=== PATIENT | male | born 1960 | race Caucasian/White ===

== ENCOUNTER 2022-06-18 15:45 | Emergency (ER) | payer BC, SELFPAY ==
--- NOTE | 2022-06-18 15:47 | ED.SKABFB ---
HPI - Skin/Abscess/Foreign Bdy General Chief complaint: Urogenital-Male Stated complaint: Rash Time Seen by Provider: 06/18/22 15:47 Source: patient and RN notes reviewed History of Present Illness HPI narrative: patient is a 61-year-old male who presents to urgent care with complaints of penile irritation. Patient denies any discharge or drainage from the penis. States that he has had new partners recently. Denies any urinary symptoms. States that he has also not been on his medications because he does not like his primary care doctor and has not been back for months. No other acute complaints. No acute distress noted. Patient aware of the plan of care. Some parts of this dictation were generated by voice recognition software and may contain typographical and/or grammatical inaccuracies. Related Data Allergies Allergy/AdvReac Type Severity Reaction Status Date / Time No Known Allergies Allergy Verified 06/18/22 16:05 Review of Systems Review of Systems: CONSTITUTIONAL: Denies fever, chills, or sweats. EYES: Denies visual changes, redness, or discharge. ENT: Denies rhinorrhea, congestion, sore throat, or otalgia. CARDIOVASCULAR: Denies chest pain, palpitations, or edema. RESPIRATORY: Denies cough or dyspnea. GASTROINTESTINAL: Denies abdominal pain, nausea, vomiting, or diarrhea. GENITOURINARY: Denies dysuria or hematuria. SKIN: Reports of penile skin irritation MUSCULOSKELETAL: Denies back pain, joint pain, or myalgia. NEUROLOGIC: Denies headache, numbness, or weakness. All other systems reviewed are negative, except as documented in HPI. PMFSH Comments At the time of my signature, I reviewed and agree with the nursing past medical, surgical, social, and family history. There is no relevant family history pertinent to the patient complaint. Exam Narrative: GENERAL: This is a well-nourished, well-developed patient, in no apparent distress. HEAD: normocephalic, atraumatic. EYES: PERRL. Sclera clear/white. Vision is grossly intact. EARS: External ears normal NOSE: External nose normal with no obvious nasal discharge, nares without redness, no rhinorrhea. THROAT: Mucous membranes moist NECK: Neck supple SKIN: warm, intact with no suspicious lesions or rash, good texture and turgor. NEURO: awake, alert, and oriented to person, place and time. There were no obvious focal neurologic abnormalities. : excoriated erythemic irritation to the shaft of the penis without penile discharge. EXTREMITIES: No clubbing, cyanosis, or edema. Course Course Level of Care: Express Care Visit Vital Signs Vital signs: Vital Signs Temperature 97.3 F L 06/18/22 15:56 Pulse Rate 84 06/18/22 15:56 Respiratory Rate 18 06/18/22 15:56 Blood Pressure 151/90 H 06/18/22 15:56 Pulse Oximetry 96 06/18/22 15:56 Oxygen Delivery Room Air 06/18/22 15:56 Temperature 97.3 F L 06/18/22 15:56 Pulse Rate 84 06/18/22 15:56 Respiratory Rate 18 06/18/22 15:56 Blood Pressure 151/90 H 06/18/22 15:56 Pulse Oximetry 96 06/18/22 15:56 Oxygen Delivery Room Air 06/18/22 15:56 reviewed- Patient is informed that they may have pre-hypertension or hypertension based on a blood pressure reading in the department. I recommend the patient call the primary care provider listed on their discharge instructions or a physician of their choice this week to arrange follow-up for further evaluation of possible pre-hypertension or hypertension. MDM - Skin/Abscess/Foreign Bdy MDM Narrative Medical decision making narrative: Advised patient to keep the area dry. Stop the Neosporin and use the prescription to the affected area. If you prefer to have STD testing-would recommend following up with your doctor or going to the [facility]. It is important you seek a new PCP to evaluate your overall care and discuss treatment options for your hypertension and diabetes. Patient states that he does not wish to have
[2022-06-18 15:56] VITALS: BP 151/90; PULSE 84; RESP 18; TEMP 36.3; O2SAT 96
== END 2022-06-18 16:15 | disposition home or self-care (01) ==
PROVIDERS: Emergency Provider Nurse Practitioner Family
DX: N48.89 Other specified disorders of penis (principal)
CPT/HCPCS: 99213; G0463